=== PATIENT | female | born 1985 ===

== ENCOUNTER 2021-01-30 06:00 | Day surgery (SDC) | payer OTHER ==
[~2021-01-30 06:00] MED LIST: FAMOTI PO; TOPROL XL25 M1 PO; XANAX1 MG PO
[2021-01-30] MEDS ORDERED: PERCOCET 5-3251 EACH PO (08:39)
== END 2021-01-30 16:00 | disposition home or self-care (01) ==
LOC: CIR.AMB 06:00
PROVIDERS: ATTEND Surgery
DX: K60.3 Anal fistula (principal); Z20.822 Contact with and (suspected) exposure to COVID-19

== ENCOUNTER → 2021-05-11 08:00 | Outpatient (CLI) | payer OTHER ==
[~2021-05-11 08:00] MED LIST changes: +PERCOCET 5-3251 EACH PO; +PROTONIX40 MG PO
== END | disposition home or self-care (01) ==
LOC: LAB 08:00 → ADM 12:00 → CIR.AMB 05-15 07:00 → EDSTATUS 05-15 12:00
PROVIDERS: ATTEND Surgery
DX: I10 Essential (primary) hypertension (principal); K61.0 Anal abscess; K62.89 Other specified diseases of anus and rectum

== ENCOUNTER 2021-10-16 06:10 | Day surgery (SDC) | payer OTHER ==
[2021-10-16] MEDS ORDERED: PERCOCET 5-3251 EACH PO (10:07)
[2021-10-16] MEDS ORDERED: METRONIDAZOLE500 MG PO (10:07)
[2021-10-16] MEDS ORDERED: COLACE100 MG PO (10:07)
[2021-10-16] MEDS ORDERED: NEURONTIN300 MG PO (10:07)
[2021-10-16] MEDS ORDERED: CIPRO500 MG PO (10:07)
== END 2021-10-16 15:55 | disposition home or self-care (01) ==
LOC: CIR.AMB 06:10
PROVIDERS: ATTEND Surgery
DX: K60.3 Anal fistula (principal)